=== PATIENT | female | born 1965 | race Caucasian/White ===

== ENCOUNTER 2019-03-07 14:49 | Emergency (ER) | payer BC ==
[2019-03-07 14:55] VITALS: BP 127/70; PULSE 55; RESP 16; TEMP 98.3; O2SAT 99
--- NOTE | 2019-03-07 15:20 | ED PDOC ---
Lower Extremity Pain/Injury Time Seen by Provider: 03/07/19 15:01 Chief Complaint (Nursing): Lower Extremity Problem/Injury Chief Complaint (Provider): leg swelling History Per: Patient History/Exam Limitations: no limitations Onset/Duration Of Symptoms: Other (>1 yr.) Current Symptoms Are (Timing): Intermittent Episodes Additional Complaint(s): Pt. is a 53 y/o Female who reports 1+ yr. history of intermittent leg swelling. Pt. reports when legs become swollen she will feel "lumps under the skin", when swelling resolves lumps go away. Pt. denies any sob, dyspnea on exertion, cough, cp. Pt. has been evaluated multiple times for same complaint, has seen her PMD Dr. Vences, has had bloodwork, echo, doppler and was started on hctz. Pt. has also been evaluated at outsided ED recently with ;negative doppler. Pt. denies any change in her symptoms over past year, no worsening of swelling, just wanted to it rechecked. - Risk Factors DVT Risk Factors: Neg: Decreased Mobility, Decreased Activity, Extremity Immobiliztion, Major Surgery, Active Cancer, History Of DVT Past Medical History Vital Signs: Last Vital Signs Temp 98.3 F 03/07/19 14:51 Pulse 55 L 03/07/19 14:51 Resp 16 03/07/19 14:51 BP 127/70 03/07/19 14:51 Pulse Ox 99 03/07/19 14:51 - Medical History PMH: HTN (family history), Peripheral Edema - Family History Family History: States: Unknown Family Hx - Allergies Allergies/Adverse Reactions: Allergies Allergy/AdvReac Type Severity Reaction Status Date / Time No Known Allergies Allergy Verified 03/07/19 14:51 Review of Systems Constitutional: Negative for: Fever, Chills Cardiovascular: Positive for: Edema. Negative for: Chest Pain, Palpitations, Orthopnea, Paroxysmal Noc. Dyspnea Respiratory: Negative for: Cough, Shortness of Breath, Hemoptysis Physical Exam - Physical Exam Appears: Positive for: Well, Non-toxic Head Exam: Positive for: ATRAUMATIC Skin: Positive for: Normal Color, Warm, Dry. Negative for: Rash Eye Exam: Positive for: Normal appearance Cardiovascular/Chest: Positive for: Regular Rate, Rhythm. Negative for: Gallop, JVD Respiratory: Positive for: Normal Breath Sounds. Negative for: Crackles, Rales Extremity: Positive for: Normal ROM, Other ((+) small subcutaneous nodules palpable to bilateral lower extremities with no erythema, no tenderness, no fluctuance. No signicant lower extremity swelling.) - ECG O2 Sat by Pulse Oximetry: 99 Medical Decision Making Medical Decision Making: Pt. well appearing. I spoke with office of Dr. Vences, pt had doppler of b/l lower extremities January 2019, negative. History of above, with no change in symptoms over past year and oupt. follow up in place (has upcoming appt. with pmd); no indication for emergent work up at this time. Pt. comfortable with d/c home, will f/u with PMD and possible rheum referral. Pt. ambulating with steady gait. Disposition - Clinical Impression Clinical Impression: Leg swelling - Patient ED Disposition Is Patient to be Admitted: No Counseled Patient/Family Regarding: Need For Followup - Disposition Referrals: Spike Vences MD [Medical Doctor] - Disposition: Routine/Home Disposition Time: 15:27 Condition: STABLE Instructions: Dependent Edema (DC)
== END 2019-03-07 15:31 | disposition home or self-care (01) ==
LOC: H.ER 14:49
DX: M79.89 Other specified soft tissue disorders (principal)